=== PATIENT | female | born 1970 | race Caucasian/White ===

== ENCOUNTER 2018-05-11 11:29 | Emergency (ER) | payer BC ==
--- NOTE | 2018-05-11 11:45 | EDM.PDOC ---
ED HPI GENERAL MEDICAL PROBLEM - General Chief Complaint: Lower Extremity Injury/Pain Stated Complaint: TWISTED ANKLE Time Seen by Provider: 05/11/18 11:35 Source of Information: Reports: Patient History Limitations: Reports: No Limitations - History of Present Illness INITIAL COMMENTS - FREE TEXT/NARRATIVE: 47 yo female here with a lateral R ankle injury from just before arrival. States that she is unable to bear weight. Onset: Today Onset Date: 05/11/18 Onset Time: 10:55 Duration: Minutes:, Constant Location: Reports: Lower Extremity, Right Quality: Reports: Burning Severity: Moderate Improves with: Reports: Rest Worsens with: Reports: Movement Context: Reports: Trauma Associated Symptoms: Reports: No Other Symptoms Treatments NUT TIGHTENER: Reports: Other (see below) (none) Right Ankle Pain Score (Numeric/FACES): 8 - Related Data Allergies Allergy/AdvReac Type Severity Reaction Status Date / Time Penicillins Allergy Rash Verified 05/11/18 11:41 Home Meds: Home Meds Citalopram [Citalopram HBr] 15 mg PO DAILY 05/11/18 [History] Norethindrone AC-Eth Estradiol [Microgestin 21 1-20 Tablet] 1 tab PO DAILY 05/11 [History] Review of Systems - Review of Systems Review Of Systems: See Below Constitutional: Reports: No Symptoms Musculoskeletal: Reports: Joint Pain (R ankle), Joint Swelling (R lateral ankle. ) Skin: Reports: No Symptoms Neurological: Reports: No Symptoms ED EXAM, GENERAL - Physical Exam Exam: See Below Exam Limited By: No Limitations General Appearance: Alert, WD/WN, No Apparent Distress, Obese Extremities: Pedal Edema (R lateral ankle), Limited Range of Motion (due to pain of the R lateral ankle.). No: Normal Inspection, Normal Range of Motion, Non-Tender, No Pedal Edema, Increased Warmth, Redness Neurological: Alert, Oriented, CN II-XII Intact, Normal Cognition, No Motor/ Sensory Deficits Psychiatric: Normal Affect, Normal Mood Skin Exam: Warm, Dry, Intact, Normal Color, No Rash Course - Vital Signs Text/Narrative:: CAM walker applied in ER Last Recorded V/S: Last Vital Signs Temp 36.7 C 05/11/18 11:40 Pulse 92 05/11/18 11:40 Resp 16 05/11/18 11:40 BP 137/74 05/11/18 11:40 Pulse Ox 92 L 05/11/18 11:40 - Orders/Labs/Meds Orders: Active Orders 24 hr Category Date Time Status Ankle Min 3V Rt [CR] Stat Exams 05/11/18 11:41 Taken Meds: Medications Discontinued Medications Generic Name Dose Route Start Last Admin Trade Name Angely PRN Reason Stop Dose Admin Hydromorphone HCl 1 mg 05/11/18 12:04 05/11/18 12:34 Dilaudid IM 05/11/18 12:05 1 mg ONETIME ONE Administration - Radiology Interpretation Free Text/Narrative:: R ankle [id number] fibula fx Departure - Departure Time of Disposition: 13:12 Disposition: Home, Self-Care 01 Condition: Fair Clinical Impression: Fracture of distal fibula Qualifiers: Encounter type: initial encounter Fracture type: closed Fracture morphology: other fracture Laterality: right Qualified Code(s): S82.831A - Other fracture of upper and lower end of right fibula, initial encounter for closed fracture - Discharge Information *PRESCRIPTION DRUG MONITORING PROGRAM REVIEWED*: Not Applicable *COPY OF PRESCRIPTION DRUG MONITORING REPORT IN PATIENT JUDY: Not Applicable Instructions: Nondisplaced Fibular Ankle Fracture Treated With Immobilization, Adult Referrals: Israel Alas MD [Primary Care Provider] - Forms: ED Department Discharge Additional Instructions: Keep injury elevated to reduce/prevent swelling. Wear CAM walker at all times except for bathing. Use a walker if needed to assist your with ambulation. Recheck with your provider in the next week. Take ibuprofen for pain relief and add [place] if additional pain relief is needed. - My Orders Last 24 Hours: My Active Orders 05/11/18 11:41 Ankle Min 3V Rt [CR] Stat - Assessment/Plan Last 24 Hours: My Active Orders 05/11/18 11:41 Ankle Min 3V Rt [CR] Stat
[2018-05-11] MEDS ORDERED: HYDROmorphone 1 MG/ML Syringe IM ONE (12:04)
--- NOTE | 2018-05-12 09:55 | CR ---
Ankle Min 3V Rt CLINICAL HISTORY: Pain, injury FINDINGS: The soft tissues are swollen. There is an oblique fracture of the distal fibula which is sl ightly displaced. Impression: Minimally displaced oblique fracture of the distal fibula
== END 2018-05-11 13:46 | disposition home or self-care (01) ==
LOC: JP.ED 11:29
DX: S82.831A Other fracture of upper and lower end of right fibula, initial encounter for closed fracture (principal); Z88.0 Allergy status to penicillin; Z79.899 Other long term (current) drug therapy; W19.XXXA Unspecified fall, initial encounter
CPT/HCPCS: 73610; 96372; 99284; J1170

== ENCOUNTER 2019-09-28 08:07 | Day surgery (SDC) | payer BC ==
[2019-09-28] MEDS ORDERED: Dextrose 5%-Lactated Ringers 1,000 ML IV SCH (08:45)
[2019-09-28] MEDS ORDERED: fentaNYL 100 MCG/2 ML SDV ONE (09:16)
[2019-09-28] MEDS ORDERED: Midazolam 1 MG/ML 2 ML SDV ONE (09:16)
[2019-09-28] MEDS ORDERED: Propofol 200 MG/20 ML SDV ONE (09:16)
--- NOTE | 2019-10-05 13:29 | OR ---
DATE OF PROCEDURE: 09/28/2019 SURGEON: Demetrio Flores MD PREOPERATIVE DIAGNOSIS: Indications for screening colonoscopy. POSTOPERATIVE DIAGNOSIS: Normal colonic examination. OPERATIVE PROCEDURE: Screening colonoscopy. ANESTHESIA: IV sedation. INDICATIONS FOR PROCEDURE: This is a 48-year-old female, presenting for initial colonoscopy. She does have a family history history of colon carcinoma and plan is to proceed with colonoscopy and biopsies and/or polypectomy as indicated. Potential risks including bleeding and perforation were discussed, and the patient wishes to proceed. DETAILS OF PROCEDURE: The patient was taken to the operating room, placed in a left lateral decubitus position. IV sedation was administered, after which the initial digital rectal exam was performed, it was unremarkable. Colonoscope was then passed to the level of the rectum and retroflexion revealed uncomplicated hemorrhoidal columns. Scope was eventually passed to the level of the cecum. The prep was fairly good with only a small amount of liquid stool present. To that level, no abnormalities were noted. Specifically, there were no areas of diverticular disease. No areas of colitis. No polyps or other signs of neoplasia. The scope was withdrawn, the above findings were reconfirmed, and the procedure was concluded. The patient was taken to the recovery room in satisfactory condition. Given the family history, the next colonoscopy should be scheduled in 5 years. Demetrio Flores MD /[id number]
== END 2019-09-28 12:15 | disposition home or self-care (01) ==
LOC: JP.SDS 08:07
PROVIDERS: ATTEND Surgery
DX: Z12.11 Encounter for screening for malignant neoplasm of colon (principal); K64.9 Unspecified hemorrhoids; Z88.2 Allergy status to sulfonamides; Z91.040 Latex allergy status; Z80.0 Family history of malignant neoplasm of digestive organs
CPT/HCPCS: 45378; J2250; J2704; J3010; J7121

== ENCOUNTER 2021-02-23 06:40 | Day surgery (SDC) | payer BC ==
[2021-02-23] MEDS ORDERED: Dextrose 5%-Lactated Ringers 1,000 ML IV SCH (07:00)
[2021-02-23] MEDS ORDERED: Glycopyrrolate 0.2 MG/ML 2 ML SDV IVPUSH ONE (07:00)
[2021-02-23] MEDS ORDERED: Midazolam 1 MG/ML 2 ML SDV ONE (07:02)
[2021-02-23] MEDS ORDERED: fentaNYL 100 MCG/2 ML SDV ONE (07:02)
[2021-02-23] MEDS ORDERED: Propofol 200 MG/20 ML SDV ONE (07:02)
--- NOTE | 2021-03-04 18:47 | OR ---
DATE OF PROCEDURE: 02/23/2021 SURGEON: Demetrio Flores MD PREOPERATIVE DIAGNOSIS: Poorly-controlled gastroesophageal reflux disease. POSTOPERATIVE DIAGNOSES: 1. Large hiatal hernia (7 cm) with inflamed hypopharynx, larynx, and active gastroesophageal reflux disease. 2. Mild antral gastritis. OPERATIVE PROCEDURES: Esophagogastroduodenoscopy with: 1. Biopsy of esophagogastric junction for histologic evaluation. 2. Biopsies of the antrum for CLOtest. ANESTHESIA: IV sedation. INDICATION FOR PROCEDURE: A 50-year-old female presenting with worsening symptoms of gastroesophageal reflux disease including some nighttime aspiration and a sense of inflammation of the hypopharynx and laryngeal areas. She presently is on Protonix b.i.d. Plan is to proceed with an upper endoscopy for diagnostic purposes. Potential risks including bleeding and perforation were discussed, and the patient wishes to proceed. DETAILS OF PROCEDURE: The patient was taken to the operating room, placed in a left lateral decubitus position. IV sedation was administered, after which the upper GI endoscope was passed orally through the length of the esophagus and stomach with retroflexion view of the fundus, and thereafter through the pyloric channel and into the proximal duodenum. Findings included wide area of redness in the hypopharynx and larynx. The upper esophageal sphincter and esophageal body were unremarkable. The patient otherwise had a quite large hiatal hernia measuring around 7 cm with active inflammation of the distal esophagus, this being reddened, friable, and showing some bleeding surface with minimal contact with the gastroscope being noted. No plaquing, stricturing, or other signs of neoplasia were seen otherwise within the antrum. There was some patchy redness. The remainder of the duodenal exam to the level of the junction of the third and fourth portions of the duodenum was unremarkable. At this point, biopsies were obtained from the antrum and sent for CLOtest for H pylori. Multiple biopsies were obtained from esophagogastric junction and sent for histologic evaluation. Minimal bleeding from the biopsy site was seen and the procedure was then concluded. The patient appeared to be at this point a candidate for surgical antireflux procedure. She is somewhat obese, but I think still falls within the range where a Yasmani fundoplication would be appropriate. We will await the histologic findings and see her back this coming Saturday to discuss treatment options. Of note, her of similar build had a Yasmani fundoplication sometime ago and feels this has been highly beneficial in his case. Demetrio Flores MD /[id number]
== END 2021-02-23 09:45 | disposition home or self-care (01) ==
LOC: JP.SDS 06:40
PROVIDERS: ATTEND Surgery
DX: K29.70 Gastritis, unspecified, without bleeding (principal); K21.9 Gastro-esophageal reflux disease without esophagitis; K44.9 Diaphragmatic hernia without obstruction or gangrene; G47.33 Obstructive sleep apnea (adult) (pediatric); Z91.040 Latex allergy status
CPT/HCPCS: 43239; 81025; 87081; 88305; J2250; J2704; J3010; J3490; J7121

== ENCOUNTER 2021-03-09 07:31 | Inpatient (IN) | payer BC ==
[~2021-03-09 07:31] MED LIST: Acetaminophen 500 MG Tab PO ONE; Dexamethasone 4 MG/ML SDV ONE; Glycopyrrolate 0.2 MG/ML 5 ML MDV ONE; Neostigmine Methylsulfate 1 MG/ML 5 ML Syringe ONE; Ondansetron 4 MG/2 ML SDV ONE; Propofol 200 MG/20 ML SDV ONE; Rocuronium 50 MG/5 ML Vial ONE; Succinylcholine 200 MG/10 ML MDV ONE; fentaNYL 250 MCG/5 ML SDV ONE
[2021-03-09] MEDS ORDERED: Albuterol/Ipratropium 3.0-0.5 MG/3 ML Neb Soln NEB ONE (07:50)
[2021-03-09] MEDS ORDERED: Dextrose 5%-Lactated Ringers 1,000 ML IV SCH (07:50)
[2021-03-09] MEDS ORDERED: Ketamine 500 MG/5 ML MDV IV SCH (09:15)
[2021-03-09] MEDS ORDERED: Ketamine 50 MG in Sodium Chloride 0.9% 49.5 ML IV SCH (09:15)
[2021-03-09] MEDS ORDERED: ceFAZolin 2 GM in Sodium Chloride 0.9% 100 ML IV ONE (10:20)
[2021-03-09] MEDS ORDERED: ceFAZolin 2 GM in Premix Bag 1 BAG IV ONE (10:30)
[2021-03-09] MEDS ORDERED: Lactated Ringers 1,000 ML ONE (11:29)
[2021-03-09] MEDS ORDERED: fentaNYL 250 MCG/5 ML SDV ONE (11:51)
[2021-03-09] MEDS ORDERED: Sugammadex Sodium 200 MG/2 ML VIAL ONE (12:46)
[2021-03-09] MEDS ORDERED: HYDROmorphone 1 MG/ML Syringe IV PRN (14:03)
[2021-03-09] MEDS ORDERED: HYDROmorphone 2 MG Tab PO PRN (14:09)
[2021-03-09] MEDS ORDERED: Ondansetron 4 MG/2 ML SDV IVPUSH PRN (14:10)
[2021-03-09] MEDS ORDERED: Albuterol/Ipratropium 3.0-0.5 MG/3 ML Neb Soln INH PRN (14:17)
[2021-03-09] MEDS: Albuterol/Ipratropium 3.0-0.5 MG/3 ML Neb Soln INH SCH ×2 (14:31→20:59)
[2021-03-09] MEDS: Acetaminophen 500 MG Tab PO SCH ×2 (15:53→21:00)
[2021-03-09] MEDS: Metoclopramide 10 MG/2 ML SDV IV SCH (15:53)
[2021-03-09] MEDS: HYDROmorphone 0.5 MG/0.5 ML Syringe IVPUSH PRN (15:56)
[2021-03-09] MEDS ORDERED: Pantoprazole 40 MG Vial IV SCH (16:00)
[2021-03-09] MEDS: Dextrose 5%-Lactated Ringers 1,000 ML IV SCH (16:47)
[2021-03-09] MEDS: ceFAZolin 2 GM in Premix Bag 1 BAG IV SCH (18:17)
[2021-03-09] MEDS ORDERED: Sodium Ferric Gluconate Cmplex 250 MG in Sodium Chloride 0.9% 100 ML IV ONE (18:41)
[2021-03-09] MEDS ORDERED: Montelukast 10 MG Tab PO SCH (21:00)
[2021-03-09] MEDS ORDERED: rOPINIRole 1 MG Tab PO SCH (21:00)
[2021-03-10] MEDS: Metoclopramide 10 MG/2 ML SDV IV SCH ×2 (01:09→10:33)
[2021-03-10] MEDS: Dextrose 5%-Lactated Ringers 1,000 ML IV SCH (01:10)
[2021-03-10] MEDS: HYDROmorphone 0.5 MG/0.5 ML Syringe IVPUSH PRN (01:16)
[2021-03-10] MEDS: Acetaminophen 500 MG Tab PO SCH ×2 (03:29→10:34)
[2021-03-10] MEDS: ceFAZolin 2 GM in Premix Bag 1 BAG IV SCH ×2 (03:29→10:34)
[2021-03-10] MEDS: Albuterol/Ipratropium 3.0-0.5 MG/3 ML Neb Soln INH SCH ×2 (07:20→10:43)
[2021-03-10] MEDS ORDERED: Amphetamine/Dextroamphetamine Salts 10 MG Cap.ER PO SCH (09:00)
[2021-03-10] MEDS ORDERED: Citalopram 20 MG Tab PO SCH (09:00)
[2021-03-10] MEDS ORDERED: MICROGESTIN FE PO SCH (09:00)
[2021-03-10] MEDS ORDERED: Sodium Ferric Gluconate Cmplex 250 MG in Sodium Chloride 0.9% 100 ML IV ONE (09:00)
[2021-03-10] MEDS ORDERED: Dextrose 5%-Lactated Ringers 1,000 ML IV SCH (13:00)
--- NOTE | 2021-03-10 14:45 | DISCH ---
ADMISSION DIAGNOSES: Gastroesophageal reflux disease refractory to medical management, large paraesophageal hernia. DISCHARGE DIAGNOSES: Diagnostic laparoscopy: 1. Repair of paraesophageal hernia with mesh, Yasmani fundoplication. 2. Excision of mediastinal lipoma. 3. Liver biopsy. 4. Large paraesophageal diaphragmatic hernia. 5. Mediastinal lipoma. 6. Extensive fatty infiltrate of liver. HISTORY: Elida is a 50-year-old female who had longstanding history of gastroesophageal reflux disease refractory to medical management. After preoperative evaluation and discussion of possible risks and possible complications, she wished to proceed with surgical procedure. HOSPITAL COURSE: Elida had her surgery on 03/09/2021. She had no operative complications. Her ferritin was checked and was 7, so she received 2 doses of 250 mg of ferrous gluconate. Elida received adequate nutritional education. Vital signs were stable. Pain was well managed. Activity was good and she was able to be discharged to home on postop day #1. PHYSICAL EXAMINATION: GENERAL: Elida Figueroa is a pleasant 50-year-old female. VITAL SIGNS: Height is 5 feet 3 inches, weight is 211 pounds. TPR 96.9, 81, 18, blood pressure 120/54. HEENT: Negative. NECK: Supple. HEART: Regular rate and rhythm. LUNGS: Clear. ABDOMEN: Dressings dry and intact. Abdominal binder is on. EXTREMITIES: Without peripheral edema. DISPOSITION: Discharged to home. CONDITION: Stable and improving. FOLLOWUP APPOINTMENTS: With Demetrio Flores, 03/22/2021 at 9 a.m. HOME MEDICATIONS: 1. Dilaudid 2 mg p.o. q.4 hours p.r.n. pain, #12. 2. She is to resume home medication of: a. Singulair 10 mg at bedtime. b. Ropinirole 1 mg p.o. daily. c. Albuterol inhaler 2 puffs every 4 hours p.r.n. d. Microgestin iron 1/20 tablet 1 daily. e. Buspar 10 mg p.o. daily. f. Omeprazole 20 mg p.o. b.i.d. g. Citalopram 40 mg p.o. daily. h. Adderall 15 mg p.o. q.a.m. DIET: Full liquid diet for 2 weeks. Drink 8 to 10 glasses of water a day. ACTIVITY: No lifting greater than 10 pounds for 2 weeks. OTHER ACTIVITY: Walk 6 times daily inside your home. Driving: Do not drive for 1 week. DISCHARGE INSTRUCTIONS: Shower/bathing: May shower. Keep operative site clean and dry. Wear abdominal binder if tolerated for 2 weeks. Notify provider if any fever, increased pain, swelling, redness, drainage, nausea, vomiting. OTHER INSTRUCTIONS: Use incentive spirometer 10 times every hour while awake. /[id number]
--- NOTE | 2021-03-13 16:46 | PCM.EKG ---
#1 Interpretation EKG Date: 03/09/21 Time: 08:10 Rhythm: NSR Rate (Beats/Min): 86 [place]: Normal P-Wave: Present QRS: Normal ST-T: Other (Nonspecific T wave abnormalities) QT: Normal Comparison: NA - No Prior EKG
--- NOTE | 2021-03-19 18:13 | OR ---
DATE OF PROCEDURE: 03/09/2021 SURGEON: Demetrio Flores MD PREOPERATIVE DIAGNOSIS: Large paraesophageal diaphragmatic hernia with increasing reflux symptoms. POSTOPERATIVE DIAGNOSES: 1. Large paraesophageal diaphragmatic hernia with increasing reflux symptoms. 2. Mediastinal lipoma. 3. Marked hepatomegaly with extensive fatty infiltration of liver. PROCEDURE: Diagnostic laparoscopy with: 1. Repair of paraesophageal diaphragmatic hernia with mesh and Yasmani fundoplication (69373). 2. Excision of mediastinal lipoma (60807). 3. Needle liver biopsy ([id number]). ANESTHESIA: General. MIDDLE SCHOOL COACH: Dayana Ruiz PA-C. INDICATION FOR PROCEDURE: A 50-year-old female presenting with a large paraesophageal diaphragmatic hernia with increasingly severe symptoms that has become refractory to medical management. Plan is to proceed with a laparoscopic Yasmani fundoplication most likely augmented with absorbable mesh. Potential risks including bleeding, infection, injury to the viscera, problems such as dysphagia, gas bloat syndrome, disorders of gastric emptying rate, as well as incomplete relief of reflux symptoms were all reviewed, and the patient wishes to proceed. DETAILS OF PROCEDURE: The patient was taken to the operating room and after general endotracheal anesthesia was induced, placed in a lithotomy position and the abdomen prepped and draped 15 cm inferior and 5 cm left of the xiphoid process. A transverse incision was made and peritoneal cavity entered under direct vision with an Optiview trocar, inflated to 15 mmHg pressure with CO2. Laparoscope was reinserted. No underlying trocar insertion site injuries were seen. Following this, bilateral transversus abdominis plane blocks were placed and 4 additional trocars were placed across the mid abdomen. The patient was noted to have quite strikingly enlarged liver which was grossly fatty infiltrated. [place]-Cut needle biopsy was obtained from the left lobe of the liver. Minimal bleeding from the biopsy site was seen, which was controlled with electrocautery. The liver was then retracted anteriorly, and as expected, the patient was noted to have a large paraesophageal diaphragmatic hernia. This was reduced and the peritoneum overlying this was incised and reflected downward. The area around the distal esophagus was eventually dissected free to the point where there was a 4 cm length of intra-abdominal esophagus. During the course of dissection, 2 significant mediastinal lipomas were excised and sent as a separate specimen. The crural repair was then accomplished with a series of 0 Ethibond sutures and reinforced with PTFE pledgets. Phasix ST mesh was then cut such that it laid across the crural repair and then slightly onto the crura on each side along the site of the esophagus and the mesh was fixed with titanium tacking screws. The fundus was then mobilized upward to the division of the upper aspects of the greater omentum and then continuing with Harmonic Scalpel up through the short gastric vessels including the highest posterior short gastric vessels with a large hiatal hernia, the fundus was quite mobile and these easily passed through the retroesophageal window. A guidewire was passed the esophageal window, a guidewire was passed and over this, a 54- [place] Savary dilator was placed and a 3-stitch 2 cm fundoplication was accomplished with 0 Ethibond sutures reinforced with PTFE pledgets underlying esophagus to help fix it in position. Fundoplication was then sutured to the diaphragm with 3 additional sutures to help maintain a satisfactory position. At that point, no further problems noted. Trocars were removed and the peritoneal cavity deflated. Incisions were closed with 4-0 Vicryl skin stitch, and patient taken to the recovery room in satisfactory condition. Physician catering administrative assistant, Dayana Ruiz, played an essential role in assisting in this case, helping to position the patient, retract structures as needed, as well as suturing and cutting sutures when indicated. Her presence improved patient safety and decreased operative time. Demetrio Flores MD /[id number]
== END 2021-03-10 13:00 | disposition home or self-care (01) | DRG 220 ==
LOC: JP.SDS 07:31 → JP.MS 07:31 → EDSTATUS 13:15
PROVIDERS: ADMIT Surgery; ATTEND Surgery
PROC: 0BUT4JZ Supplement Diaphragm with Synthetic Substitute, Percutaneous Endoscopic Approach (ICD-10-PCS; principal; 2021-03-09)
PROC: 0DV44ZZ Restriction of Esophagogastric Junction, Percutaneous Endoscopic Approach (ICD-10-PCS; 2021-03-09)
PROC: 0WBC4ZZ Excision of Mediastinum, Percutaneous Endoscopic Approach (ICD-10-PCS; 2021-03-09)
PROC: 0FB04ZX Excision of Liver, Percutaneous Endoscopic Approach, Diagnostic (ICD-10-PCS; 2021-03-09)
DX: K44.9 Diaphragmatic hernia without obstruction or gangrene (principal); K21.9 Gastro-esophageal reflux disease without esophagitis; D17.79 Benign lipomatous neoplasm of other sites; R16.0 Hepatomegaly, not elsewhere classified
CPT/HCPCS: 36415; 81025; 82607; 82728; 82746; 88304; 88307; 88313; 93005; 94640; 94762; A9270-GY; C1713; C1781; C9113; J0171; J0330; J0690; J1100; J1170; J2405; J2704; J2710; J2765; J2795; J2916; J3010; J3490; J7120; J7121; J7620-GY